=== PATIENT | male | born 1960 | race Caucasian/White ===

== ENCOUNTER 2018-10-28 10:01 | Day surgery (SDC) | payer BC ==
[2018-10-28] MEDS ORDERED: PROPOFOL 10 MG/ML VIAL IV ONE (10:02)
[2018-10-28] MEDS ORDERED: MIDAZOLAM HCL 2MG/2ML VIAL IV ONE (10:02)
[2018-10-28] MEDS ORDERED: LIDOCAINE 2% MDV (20MG/ML) 20ML VIAL IV ONE (10:02)
--- NOTE | 2018-10-31 09:51 | Operative Note ---
DATE OF SURGERY: 10/28/2018 SURGEON: Valeria Rocha MD OPERATION: COLONOSCOPY. INDICATIONS: This is a 57-year-old male with history of average risk for colorectal cancer who presented for screening colonoscopy. POSTOPERATIVE DIAGNOSES: 1. A 3 mm ascending colon polyp that was removed by cold biopsy forceps. 2. Two 2-3 mm sessile polyps in the descending colon that were removed by cold biopsy forceps. 3. Otherwise normal colon. ANESTHESIA: Sedation is per Anesthesia. Pulse oximetry was monitored throughout the procedure to maintain O2 saturation of 90% or greater. Supplemental oxygen was administered via nasal cannula. Cardiac and vital signs were monitored throughout the duration of the procedure, and they were stable. The procedure of colonoscopy and risks and alternatives of the procedure, including the risk of bleeding and perforation, among others, were explained to the patient who voiced understanding and agreed to have the procedure done. Physical examination was performed, and the patient was found stable for sedation. PROCEDURE: The patient was placed in the left lateral position. Sedation was initiated. A digital rectal exam was performed and showed some mild external hemorrhoids with no palpable rectal masses. An Olympus PCF-180AL colonoscope was then inserted into the rectum under direct visualization. It was advanced to the cecum without difficulty. The ileocecal valve and appendiceal orifice were identified and photographed. The colonic mucosa was carefully examined upon introduction of the colonoscope. In the ascending colon was a 3 mm sessile polyp that was noted and was removed by cold biopsy forceps. The rest of the colonic mucosa appeared normal. The colonoscope was then withdrawn while carefully examining the colonic mucosal surfaces. No other lesions were noted in the cecum, ascending colon, or transverse colon. In the descending colon was a 3 mm sessile polyp that was noted and was removed by cold biopsy forceps. The rest of the descending colon and sigmoid colon and rectal mucosa appeared normal. Retroflexion revealed grade 1 internal hemorrhoids. The colonoscope was then withdrawn and the procedure was terminated. The patient tolerated the procedure well without any immediate complications. The patient remained with stable vital signs and was transferred to the recovery room. RECOMMENDATIONS: 1. The patient should be on a high-fiber diet. 2. The patient is to have a repeat colonoscopy for surveillance in 5 years. Thank you for allowing me to participate in the care of your patient. CC: FLORESITA Robledo
== END 2018-10-28 13:15 | disposition home or self-care (01) ==
LOC: HOP 10:01
PROVIDERS: ATTEND Internal Medicine Gastroenterology
DX: Z12.11 Encounter for screening for malignant neoplasm of colon (principal); D12.2 Benign neoplasm of ascending colon; D12.4 Benign neoplasm of descending colon; I10 Essential (primary) hypertension; E78.00 Pure hypercholesterolemia, unspecified; J45.909 Unspecified asthma, uncomplicated

== ENCOUNTER 2019-08-17 13:42 | Emergency (ER) | payer BC ==
[2019-08-17] MEDS ORDERED: 0.9 % SODIUM CHLORIDE 1,000 ML BAG IV ONE ×2 (14:30→17:04)
[2019-08-17 14:48] LABS: ABSOLUTE NEUTROPHIL COUNT 8.63; HEMATOCRIT 47.4 % (42.0-52.0); MEAN CORPUSCULAR HEMOGLOBIN 33.4 pg (27-33); MEAN CORPUSCULAR HGB CONC 33.8 g/dl (32-36); MEAN PLATELET VOLUME 9.3 fl (7.4-10.4); PLATELET COUNT 228 K/uL (130-400); RED BLOOD COUNT 4.79 M/uL (4.40-5.70); RED CELL DISTRIBUTION WIDTH 12.4 % (11.5-14.5); WHITE BLOOD COUNT W/O DIFF 10.5 K/uL (4.2-12.2)
[2019-08-17 14:57] LABS: PLATELET ESTIMATE NORMAL (NORMAL)
[2019-08-17 14:58] LABS: BILIRUBIN,TOTAL 0.5 mg/dL (0.2-1.0); CREATININE 1.4 mg/dL (0.7-1.2)
[2019-08-17 14:59] LABS: TOTAL PROTEIN 7.3 g/dL (6.6-8.7)
[2019-08-17 15:04] LABS: ALBUMIN 3.7 g/dL (4.0-5.0)
--- NOTE | 2019-08-17 15:09 | Emergency Department Record ---
History of Present Illness - General Chief Complaint: Dizziness Stated Complaint: DIZZY Time Seen by Provider: 08/17/19 14:13 Source: Patient Mode of Arrival: Ambulatory Limitations: No limitations - History of Present Illness Initial Comments: pt has been sick for a week with n/v/d, cough, weakness, fever sweats , chills, lightheadedness, pt went to [facility] and was brought here because his bp was 87/ MD Complaint: Dizziness Onset/Timin -: Days(s) Timing: Gradual onset History of Same: No History of Trauma: No Severity: Moderate Improves With: Nothing Worsens With: Nothing Associated Symptoms: Denies other symptoms - Teto Coma Scale Eye Response: (4) Open spontaneously Motor Response: (6) Obeys commands Verbal Response: (5) Oriented Teto Total: 15 - Symptoms of Stroke Symptoms of stroke: Dizziness - Related Data Allergies Allergy/AdvReac Type Severity Reaction Status Date / Time Penicillins Allergy Unknown unknown; Verified 08/17/19 13:49 throat closes Travel Screening - Travel/Exposure Within Last 30 Days Have you traveled within the last 30 days?: No - Travel/Exposure Within Last Year Have you traveled outside the [place] in the last year?: Yes Location Detail:: [place] - Additonal Travel Details Have you been exposed to anyone with a communicable illness?: No - Travel Symptoms Symptom Screening: None Review of Systems Reviewed: No additional complaints except as noted below Constitutional: Reports: As per HPI. Denies: Chills, Fever, Malaise, Night sweats, Weakness, Weight change Eyes: Reports: As per HPI. Denies: Eye discharge, Eye pain, Photophobia, Vision change ENT: Reports: As per HPI. Denies: Congestion, Dental pain, Ear pain, Epistaxis, Hearing loss, Throat pain Respiratory: Reports: As per HPI. Denies: Cough, Dyspnea, Hemoptysis, Stridor, Wheezes Cardiovascular: Reports: As per HPI. Denies: Arrhythmia, Chest pain, Dyspnea on exertion, Edema, Murmurs, Orthopnea, Palpitations, Paroxysmal nocturnal dyspnea, Rheumatic Fever, Syncope Endocrine: Reports: As per HPI. Denies: Fatigue, Heat or cold intolerance, Polydipsia, Polyuria Gastrointestinal: Reports: As per HPI. Denies: Abdominal pain, Constipation, Diarrhea, Hematemesis, Hematochezia, Melena, Nausea, Vomiting Genitourinary: Reports: As per HPI. Denies: Dysuria, Frequency, Hematuria, Incontinence, Retention, Testicular pain, Testicular mass, Urgency Musculoskeletal: Reports: As per HPI. Denies: Arthralgia, Back pain, Gout, Joint swelling, Myalgia, Neck pain Skin: Reports: As per HPI. Denies: Bruising, Change in color, Change in hair/nails, Lesions, Pruritus, Rash Neurological: Reports: As per HPI. Denies: Abnormal gait, Confusion, Headache, Numbness, Paresthesias, Seizure, Tingling, Tremors, Vertigo, Weakness Psychiatric: Reports: As per HPI. Denies: Anxiety, Auditory hallucinations, Depression, Homicidal thoughts, Suicidal thoughts, Visual hallucinations Hematological/Lymphatic: Reports: As per HPI. Denies: Anemia, Blood Clots, Easy bleeding, Easy bruising, Swollen glands Past Medical History - SOCIAL HISTORY Smoking Status: Light tobacco smoker (<10/day) Alcohol Use: Occasional Drug Use: None - RESPIRATORY Hx Respiratory Disorders: Yes Hx Asthma: Yes Hx Sleep Apnea: Yes Hx of CPAP: Yes (getting in November) - CARDIOVASCULAR Hx Cardio Disorders: Yes Hx Abnormal EKG: Yes Hx Cardiac Cath: Yes Hx Chest Pain: Yes Hx Deep Vein Thrombosis: No Hx Heart Attack: Yes (08/2017) Hx Hypertension: Yes Hx Irregular Heartbeat: No Hx Coronary Stent: Yes Comment:: high cholesterol - NEURO Hx Neuro Disorders: No - GI Hx GI Disorders: Yes Hx of Polyps: Yes - Hx Genitourinary Disorders: Yes Hx Bladder Problem: (frequency) Hx Kidney Stones: Yes - ENDOCRINE Hx Endocrine Disorders: No - MUSCULOSKELETAL Hx Musculoskeletal Disorders: Yes Hx Arthritis: Yes (knees) - PSYCH Hx Psych Problems: Yes Hx Anxiety: Yes - HEMATOLOGY/ONCOLOGY Hx Hematology/Oncology Disorders: No Family Medical History Any Significant Family History?: No Physical Exam - General General Appearance: Alert, Oriented x3, Cooperative, Mild distress - Head Head exam: Normal inspection - Eye Eye exam: Normal appearance, PERRL, EOMI Pupils: Normal accommodation - ENT ENT exam: Normal exam, Mucous membranes dry, Normal external ear exam, Normal orophraynx Ear exam: Normal external inspection. negative: External canal tenderness Nasal Exam: Normal inspection. negative: Discharge, Sinus tenderness Mouth exam: Normal external inspection, Tongue normal Teeth exam: Normal inspection. negative: Dental caries Throat exam: Normal inspection. negative: Tonsillar erythema, Tonsillar exudate - Neck Neck exam: Normal inspection, Full ROM. negative: Tenderness - Respiratory Respiratory exam: Normal lung sounds bilaterally. negative: Respiratory distress - Cardiovascular Cardiovascular Exam: Regular rate, Normal rhythm, Normal heart sounds - GI/Abdominal GI/Abdominal exam: Soft, Normal bowel sounds. negative: Tenderness - Rectal Rectal exam: Deferred - exam: Deferred - Extremities Extremities exam: Normal inspection, Full ROM, Normal capillary refill. negative: Tenderness - Back Back exam: Reports: Normal inspection, Full ROM. Denies: Muscle spasm, Rash noted, Tenderness - Neurological Neurological exam: Alert, CN II-XII intact, Normal gait, Oriented X3 - Psychiatric Psychiatric exam: Normal affect, Normal mood - Skin Skin exam: Dry, Intact, Normal color, Warm Course Vital Signs 08/17/19 13:55 Temperature 98.3 F Pulse Rate 83 Respiratory 20 Rate Blood Pressure 102/64 Pulse Ox 95 - Reevaluation(s) Reevaluation #1: 08/17/19 17:48 pt feels better Medical Decision Making - Lab Data Result diagrams: 08/17/19 14:40 08/17/19 16:15 Lab Results 08/17/19 08/17/19 Range/Units 14:40 14:40 WBC 10.5 (4.2-12.2) K/uL RBC 4.79 (4.40-5.70) M/uL Hgb 16.0 (14.0-18.0) gm/dl Hct 47.4 (42.0-52.0) % MCV 99.0 H (81-97) fl MCH 33.4 H (27-33) pg MCHC 33.8 (32-36) g/dl RDW 12.4 (11.5-14.5) % Plt Count 228 (130-400) K/uL MPV 9.3 (7.4-10.4) fl Neutrophils % 79.0 (47-80) % Band Neutrophils % 3.0 (0-5) % Eosinophils % Not Reportable Basophils % Not Reportable Absolute Neutrophils 8.63 Lymphocytes 13.0 L (16-45) % Monocytes 5.0 (0-9) % Platelet Estimate Normal (NORMAL) RBC Morphology Normal Sodium 128 L (136-145) mmol/L Potassium 3.8 (3.4-4.5) mmol/L Chloride 89 L (98-107) mmol/L Carbon Dioxide 19.0 L (22-29) mmol/L Anion Gap 20.0 H (7-16) BUN 36 H (6-20) mg/dL Creatinine 1.4 H (0.7-1.2) mg/dL Estimated GFR 55 mL/min Calcium 9.7 (8.6-10.0) mg/dL Total Bilirubin 0.50 (0.2-1.0) mg/dL Total Protein 7.3 (6.6-8.7) g/dL Disposition Disposition: Discharge Clinical Impression: Dehydration, Viral syndrome Disposition: Home, Self-Care Condition: (1) Good Instructions: Dizziness (ED), Dehydration (ED), Viral Syndrome (ED) Additional Instructions: follow up with family doctor. return sooner if worse. push fluids. Forms: Patient Portal Access Quality - Quality Measures Quality Measures: N/A - Blood Pressure Screening Does Patient Have Any of the Following: No Blood Pressure Classification: Normal BP Reading Systolic Measurement: 102 Diastolic Measurement: 64 Screening for High Blood Pressure: < Normal BP, F/U Not Required > [G8783]
--- NOTE | 2019-08-17 15:18 | RADIOLOGY REPORT ---
EXAMINATION: Two View Chest Radiographs EXAM DATE: 08/17/2019 3:00 PM TECHNIQUE: Frontal and lateral views INDICATION: cough COMPARISON: None ENCOUNTER: Not applicable FINDINGS: The heart, mediastinum, and pulmonary vasculature are normal. No lung consolidation or pleural effu sions are present. Artifact is noted on the lateral view. IMPRESSION: No acute cardiopulmonary process. Dictated by: Ramin Aguila MD on 08/17/2019 3:16 PM. .
[2019-08-17 16:42] LABS: BLOOD UREA NITROGEN 37 mg/dL (6-20); CREATININE 1.3 mg/dL (0.7-1.2); EST GLOMERULAR FILTRATION RATE > 60 mL/min
[2019-08-17 16:45] LABS: GLUCOSE,RANDOM 102 mg/dL (74-109)
== END 2019-08-17 18:05 | disposition home or self-care (01) ==
LOC: ER 13:42
DX: E86.0 Dehydration (principal); B34.9 Viral infection, unspecified; R53.1 Weakness; F17.210 Nicotine dependence, cigarettes, uncomplicated; R11.2 Nausea with vomiting, unspecified; R19.7 Diarrhea, unspecified; R05 Cough
CPT/HCPCS: 71046; 80048; 80053; 85027; 99284; J7030